=== PATIENT | male | born 1960 | race Caucasian/White ===

== ENCOUNTER 2018-05-19 17:04 | Inpatient (IN) | payer MEDICAID, OTHER ==
[~2018-05-19] VITALS: Ht 165.1 cm; Wt 70.0 kg
[2018-05-19] MEDS ORDERED: LORA2TAB2 PO (17:35)
[2018-05-19] MEDS ORDERED: ESCI10TA PO (17:35)
[2018-05-19] MEDS ORDERED: METF-960 PO (17:40)
[2018-05-19] MEDS ORDERED: FERR-89 PO (17:40)
[2018-05-19] MEDS ORDERED: AMLO-512 PO (17:40)
[2018-05-19] MEDS ORDERED: HYDR25TA PO (17:40)
[2018-05-19] MEDS ORDERED: EPIN0.3P3 IM (17:40)
[2018-05-19] MEDS ORDERED: ASPI81 PO (17:40)
[2018-05-19] MEDS ORDERED: LOSA50TA25 PO (17:40)
[2018-05-19] MEDS ORDERED: PRAV20TA4 PO (17:40)
[2018-05-19] MEDS ORDERED: METO50 PO (17:40)
[2018-05-19] MEDS ORDERED: OMEP20 PO (17:40)
[2018-05-19] MEDS ORDERED: GEMF600T5 PO (17:40)
[2018-05-19] MEDS ORDERED: LEVO112T4 PO (17:40)
[2018-05-19] MEDS ORDERED: GLYB5 PO (17:40)
[2018-05-19 18:20] LABS: BASOPHILS % (AUTO) 0.5 % (0.0-2.0); EOSINOPHILS % (AUTO) 10.5 % (1.0-6.0); HEMATOCRIT 41.4 % (41-53); HEMOGLOBIN 14.6 g/dL (13.5-17.5); LYMPHOCYTES # (AUTO) 1.7 K/uL (1.0-4.8); LYMPHOCYTES % (AUTO) 27.4 % (22.0-44.0); MEAN CORPUSCULAR HEMOGLOBIN 30.8 pg (26.0-34.0); MEAN CORPUSCULAR HGB CONC 35.3 G/dL (31.0-37.0); MEAN CORPUSCULAR VOLUME 87 fL (80-100); MONOCYTES # (AUTO) 0.6 K/uL (0.1-1.0); MONOCYTES % (AUTO) 10.5 % (2.0-9.0); NEUTROPHILS # (AUTO) 3.1 K/uL (1.8-7.7); NEUTROPHILS % (AUTO) 51.1 % (40.0-70.0); PLATELET COUNT (AUTO) 277 K/uL (150-450); RED BLOOD CELL COUNT(AUTO) 4.75 MIL/uL (4.50-5.90); RED CELL DISTRIBUTION WIDTH 13.4 % (11.5-14.5)
[2018-05-19 18:31] LABS: ANION GAP 12 mmol/L (8-16); CALCIUM, TOTAL 8.8 mg/dL (8.8-10.5); CARBON DIOXIDE 23 mmol/L (22-29); CHLORIDE 102 mmol/L (98-107); CREATININE 1.18 mg/dL (0.60-1.30); GLOMERULAR FILTR. RATE CALC > 60 mL/min (>60); GLUCOSE,RANDOM 98 mg/dL (70-110); POTASSIUM 3.1 mmol/L (3.5-5.1); SODIUM SERUM 137 mmol/L (136-145); UREA NITROGEN, BLOOD 23 mg/dL (7-18)
[2018-05-19 18:36] LABS: ALANINE AMINOTRANSFERASE 37 U/L (12-78); ALBUMIN 3.6 g/dL (3.4-5.0); ALKALINE PHOSPHATASE 86 U/L (46-116); ASPARTATE AMINOTRANSFERASE 22 U/L (15-37); BILIRUBIN,TOTAL 0.3 mg/dL (0.1-1.0); TOTAL PROTEIN, SERUM 6.6 g/dL (6.4-8.2)
[2018-05-19] MEDS ORDERED: POTASSIUM CHLORIDE 20 MEQ ER TABLET PO ONE (20:00)
[2018-05-19] MEDS ORDERED: OLANZapine 5 MG RAPDIS TABLET PO PRN (20:15)
[2018-05-20] VITALS (11 sets, daily range): BP systolic 118–138; BP diastolic 65–94
[2018-05-20] MEDS: ZOLPIDEM TARTRATE 10 MG TABLET PO PRN (00:55)
[2018-05-20 00:59] LABS: GLUCOMETER DEV NAME(LOC) BV3N5; GLUCOSE,POINT OF CARE 72 MG/DL (70-110)
[2018-05-20] MEDS ORDERED: PNEUMOCOCCAL VACCINE POLYVALENT 0.5 ML VIAL [PPSV23] IM ONE (03:15)
[2018-05-20 06:40] LABS: GLUCOMETER DEV NAME(LOC) BV3N5; GLUCOSE,POINT OF CARE 86 MG/DL (70-110)
[2018-05-20] MEDS ORDERED: PETROLATUM,WHITE 71 GM JELLY TP PRN (07:30)
[2018-05-20] MEDS ORDERED: ACETAMINOPHEN 325 MG TABLET PO PRN (07:30)
[2018-05-20] MEDS ORDERED: NICOTINE 14 MG/24 HOUR PATCH TD PRN (07:30)
[2018-05-20] MEDS ORDERED: IBUPROFEN 400 MG TABLET PO PRN (07:30)
[2018-05-20] MEDS ORDERED: MAGNESIUM HYDROXIDE SUSPENSION 30 ML UDCUP PO PRN (07:30)
[2018-05-20] MEDS ORDERED: CloNIDine HCL 0.1 MG TABLET PO PRN (07:30)
[2018-05-20] MEDS ORDERED: ALBUTEROL SULFATE HFA 90 MCG/PUFF 8 GM INHALER IH PRN (07:30)
[2018-05-20] MEDS ORDERED: GuaiFENesin/D-METHORPHAN [SUGAR-FREE] 200-20MG/10 ML SYRUP UDCUP PO PRN (07:30)
[2018-05-20] MEDS ORDERED: DOCUSATE SODIUM 100 MG CAPSULE PO PRN (07:30)
[2018-05-20] MEDS ORDERED: LOPERAMIDE HCL 2 MG CAPSULE PO PRN (07:30)
[2018-05-20] MEDS ORDERED: ONDANSETRON HCL 4 MG TABLET PO PRN (07:30)
[2018-05-20] MEDS ORDERED: MAG HYDROX/AL HYDROX/SIMETH ES 30 ML SUSPENSION UDCUP PO PRN (07:30)
[2018-05-20 08:10] LABS: BASOPHILS % (AUTO) 0.7 % (0.0-2.0); EOSINOPHILS % (AUTO) 12.2 % (1.0-6.0); HEMOGLOBIN 16.4 g/dL (13.5-17.5); LYMPHOCYTES # (AUTO) 2.6 K/uL (1.0-4.8); LYMPHOCYTES % (AUTO) 38.2 % (22.0-44.0); MEAN CORPUSCULAR HEMOGLOBIN 31.3 pg (26.0-34.0); MEAN CORPUSCULAR HGB CONC 35.6 G/dL (31.0-37.0); MEAN CORPUSCULAR VOLUME 88 fL (80-100); MONOCYTES # (AUTO) 0.7 K/uL (0.1-1.0); MONOCYTES % (AUTO) 10.6 % (2.0-9.0); NEUTROPHILS # (AUTO) 2.7 K/uL (1.8-7.7); NEUTROPHILS % (AUTO) 38.3 % (40.0-70.0); PLATELET COUNT (AUTO) 329 K/uL (150-450); RED BLOOD CELL COUNT(AUTO) 5.25 MIL/uL (4.50-5.90); RED CELL DISTRIBUTION WIDTH 13.7 % (11.5-14.5)
[2018-05-20 08:24] LABS: HEMOGLOBIN A1C 5.9 % (4.5-6.2)
[2018-05-20 08:34] LABS: ALANINE AMINOTRANSFERASE 43 U/L (12-78); ALBUMIN 4.3 g/dL (3.4-5.0); ALKALINE PHOSPHATASE 101 U/L (46-116); ANION GAP 9 mmol/L (8-16); ASPARTATE AMINOTRANSFERASE 29 U/L (15-37); BILIRUBIN,TOTAL 0.5 mg/dL (0.1-1.0); CALCIUM, TOTAL 9.7 mg/dL (8.8-10.5); CARBON DIOXIDE 28 mmol/L (22-29); CHLORIDE 101 mmol/L (98-107); CHOL/HDL RATIO 4.8 (4.2-7.3); CHOLESTEROL 222 mg/dL (131-200); GLOMERULAR FILTR. RATE CALC > 60 mL/min (>60); GLUCOSE,RANDOM 77 mg/dL (70-110); HDL CHOLESTEROL 46 mg/dL (40-60); LDL CHOL (CALC.) 132 mg/dL (0-130); SODIUM SERUM 138 mmol/L (136-145); TOTAL PROTEIN, SERUM 7.9 g/dL (6.4-8.2); TRIGLYCERIDES 218 mg/dL (15-150); UREA NITROGEN, BLOOD 20 mg/dL (7-18)
[2018-05-20] MEDS ORDERED: AmLODIPine BESYLATE 10 MG TABLET PO ONE (09:00)
[2018-05-20] MEDS: METOPROLOL TARTRATE 50 MG TABLET PO SCH ×2 (09:00→17:01)
[2018-05-20] MEDS: HYDROCHLOROTHIAZIDE 25 MG TABLET PO SCH (09:02)
[2018-05-20] MEDS: OMEPRAZOLE 20 MG CAPSULE PO SCH (09:02)
[2018-05-20] MEDS: LORazepam 2 MG TABLET PO PRN ×2 (09:03→14:42)
[2018-05-20] MEDS ORDERED: ChlordiazePOXIDE HCL 25 MG CAPSULE PO PRN (09:30)
[2018-05-20] MEDS ORDERED: GLUCAGON,HUMAN RECOMBINANT 1 MG VIAL IM PRN (09:45)
[2018-05-20] MEDS ORDERED: INSULIN LISPRO 100 UNITS/ML SQ PRN (09:45)
[2018-05-20] MEDS: CITALOPRAM HYDROBROMIDE 20 MG TABLET PO SCH (10:21)
[2018-05-20] MEDS: FERROUS SULFATE 325 MG EC TABLET PO SCH ×2 (12:02→17:01)
[2018-05-20] MEDS: PRAVASTATIN SODIUM 20 MG TABLET PO SCH (12:03)
[2018-05-20] MEDS: LOSARTAN POTASSIUM 50 MG TABLET PO SCH (12:03)
[2018-05-20] MEDS: GABAPENTIN 300 MG CAPSULE PO SCH ×2 (12:50→17:01)
[2018-05-20] MEDS: MetFORMIN HCL 850 MG TABLET PO SCH (17:01)
[2018-05-20] MEDS: GEMFIBROZIL 600 MG TABLET PO SCH (17:01)
[2018-05-20 18:29] LABS: GLUCOMETER DEV NAME(LOC) BV3N5; GLUCOSE,POINT OF CARE 71 MG/DL (70-110)
[2018-05-20] MEDS: IBUPROFEN 400 MG TABLET PO PRN (23:48)
[2018-05-21] MEDS: ZOLPIDEM TARTRATE 10 MG TABLET PO PRN (00:35)
[2018-05-21] MEDS: DENTURE ADHESIVE 68 GM CREAM DT PRN (00:36)
[2018-05-21 00:48] VITALS: BP 117/83
[2018-05-21 04:05] VITALS: BP 116/81
[2018-05-21 06:14] LABS: GLUCOMETER DEV NAME(LOC) BV3N5; GLUCOSE,POINT OF CARE 105 MG/DL (70-110)
[2018-05-21] MEDS: GEMFIBROZIL 600 MG TABLET PO SCH ×2 (06:20→16:21)
[2018-05-21] MEDS: LEVOTHYROXINE SODIUM 112 MCG TABLET PO SCH (06:20)
[2018-05-21] MEDS: GlyBURIDE 5 MG TABLET PO SCH ×2 (06:20→06:34)
[2018-05-21] MEDS: MetFORMIN HCL 850 MG TABLET PO SCH ×2 (06:31→16:20)
[2018-05-21] MEDS: FERROUS SULFATE 325 MG EC TABLET PO SCH ×3 (06:31→16:21)
[2018-05-21] MEDS ORDERED: ChlordiazePOXIDE HCL 25 MG CAPSULE PO PRN (07:00)
[2018-05-21 08:00] VITALS: BP 145/78
[2018-05-21 08:03] VITALS: BP 145/78
[2018-05-21] MEDS: GABAPENTIN 300 MG CAPSULE PO SCH ×3 (09:39→16:21)
[2018-05-21] MEDS: HYDROCHLOROTHIAZIDE 25 MG TABLET PO SCH (09:39)
[2018-05-21] MEDS: ChlordiazePOXIDE HCL 25 MG CAPSULE PO SCH ×4 (09:39→20:28)
[2018-05-21] MEDS: OMEGA-3/DHA/EPA/FISH OIL 1,000 MG CAPSULE PO SCH (09:40)
[2018-05-21] MEDS: OMEPRAZOLE 20 MG CAPSULE PO SCH (09:40)
[2018-05-21] MEDS: ASPIRIN 81 MG CHEWABLE TABLET PO SCH (09:40)
[2018-05-21] MEDS: CITALOPRAM HYDROBROMIDE 20 MG TABLET PO SCH (09:40)
[2018-05-21] MEDS: PRAVASTATIN SODIUM 20 MG TABLET PO SCH (09:41)
[2018-05-21] MEDS: LOSARTAN POTASSIUM 50 MG TABLET PO SCH (09:41)
[2018-05-21] MEDS: METOPROLOL TARTRATE 50 MG TABLET PO SCH ×2 (09:41→16:20)
[2018-05-21 12:00] VITALS: BP 137/90
[2018-05-21 16:00] VITALS: BP 140/83
[2018-05-21 16:49] LABS: GLUCOMETER DEV NAME(LOC) BV3N5; GLUCOSE,POINT OF CARE 147 MG/DL (70-110)
[2018-05-22 00:07] VITALS: BP 128/89
[2018-05-22] MEDS: ZOLPIDEM TARTRATE 10 MG TABLET PO PRN (01:15)
[2018-05-22 06:09] LABS: GLUCOMETER DEV NAME(LOC) BV3N5; GLUCOSE,POINT OF CARE 136 MG/DL (70-110)
[2018-05-22] MEDS: LEVOTHYROXINE SODIUM 112 MCG TABLET PO SCH (06:23)
[2018-05-22] MEDS: GEMFIBROZIL 600 MG TABLET PO SCH ×2 (06:23→16:58)
[2018-05-22] MEDS: ASPIRIN 81 MG CHEWABLE TABLET PO SCH (06:30)
[2018-05-22] MEDS: FERROUS SULFATE 325 MG EC TABLET PO SCH ×3 (06:30→16:58)
[2018-05-22] MEDS: MetFORMIN HCL 850 MG TABLET PO SCH ×2 (06:31→16:59)
[2018-05-22] MEDS: GlyBURIDE 5 MG TABLET PO SCH (06:31)
[2018-05-22] MEDS: DENTURE ADHESIVE 68 GM CREAM DT PRN (07:24)
[2018-05-22] MEDS: CITALOPRAM HYDROBROMIDE 20 MG TABLET PO SCH (08:32)
[2018-05-22] MEDS: HYDROCHLOROTHIAZIDE 25 MG TABLET PO SCH (08:32)
[2018-05-22] MEDS: OMEPRAZOLE 20 MG CAPSULE PO SCH (08:32)
[2018-05-22] MEDS: ChlordiazePOXIDE HCL 25 MG CAPSULE PO SCH ×4 (08:32→20:35)
[2018-05-22] MEDS: PRAVASTATIN SODIUM 20 MG TABLET PO SCH (08:33)
[2018-05-22] MEDS: LOSARTAN POTASSIUM 50 MG TABLET PO SCH (08:33)
[2018-05-22] MEDS: OMEGA-3/DHA/EPA/FISH OIL 1,000 MG CAPSULE PO SCH (08:33)
[2018-05-22] MEDS: GABAPENTIN 300 MG CAPSULE PO SCH ×3 (08:33→16:58)
[2018-05-22] MEDS: METOPROLOL TARTRATE 50 MG TABLET PO SCH ×2 (08:33→16:59)
[2018-05-22 08:39] VITALS: BP 130/71
[2018-05-22 09:00] VITALS: BP 130/71
[2018-05-22] MEDS: LORazepam 2 MG TABLET PO PRN ×2 (09:48→21:49)
[2018-05-22 16:00] VITALS: BP 121/70
[2018-05-22 17:23] LABS: GLUCOMETER DEV NAME(LOC) BV3N5; GLUCOSE,POINT OF CARE 182 MG/DL (70-110)
[2018-05-22] MEDS: IBUPROFEN 400 MG TABLET PO PRN (20:54)
[2018-05-22] MEDS ORDERED: PHENYLEPHRINE/SHK LV/MIN OIL/PET 57 GM OINTMENT TP PRN (21:15)
[2018-05-22] MEDS ORDERED: PRAV20TA4 PO (23:33)
[2018-05-22] MEDS ORDERED: OMEP20 PO (23:33)
[2018-05-22] MEDS ORDERED: GABA-531 PO (23:33)
[2018-05-22] MEDS ORDERED: METF-445 PO (23:33)
[2018-05-22] MEDS ORDERED: CITA-106 PO (23:33)
[2018-05-22] MEDS ORDERED: LOSA50TA25 PO (23:33)
[2018-05-22] MEDS ORDERED: FERR-89 PO (23:33)
[2018-05-22] MEDS ORDERED: GLYB5 PO (23:33)
[2018-05-22] MEDS ORDERED: HYDR25TA PO (23:33)
[2018-05-22] MEDS ORDERED: LIB10 PO (23:33)
[2018-05-22] MEDS ORDERED: OMEG-50 PO (23:33)
[2018-05-22] MEDS ORDERED: LEVO112T4 PO (23:33)
[2018-05-22] MEDS ORDERED: ASPI81 PO (23:33)
[2018-05-22] MEDS ORDERED: ASPI-556 PO (23:33)
[2018-05-22] MEDS ORDERED: GEMF600T5 PO (23:33)
[2018-05-23 02:35] VITALS: BP 116/68
[2018-05-23] MEDS: ACETAMINOPHEN 325 MG TABLET PO PRN (02:49)
[2018-05-23] MEDS: LORazepam 2 MG TABLET PO PRN ×2 (02:49→16:21)
[2018-05-23] MEDS: ZOLPIDEM TARTRATE 10 MG TABLET PO PRN (02:50)
[2018-05-23 05:24] VITALS: BP 128/81
[2018-05-23] MEDS: LEVOTHYROXINE SODIUM 112 MCG TABLET PO SCH (06:29)
[2018-05-23] MEDS: GEMFIBROZIL 600 MG TABLET PO SCH ×2 (06:29→16:20)
[2018-05-23] MEDS: GlyBURIDE 5 MG TABLET PO SCH (06:30)
[2018-05-23] MEDS: MetFORMIN HCL 850 MG TABLET PO SCH ×2 (06:30→16:21)
[2018-05-23] MEDS: ASPIRIN 81 MG CHEWABLE TABLET PO SCH (06:30)
[2018-05-23] MEDS: FERROUS SULFATE 325 MG EC TABLET PO SCH ×3 (06:30→16:21)
[2018-05-23 06:35] LABS: GLUCOMETER DEV NAME(LOC) BV3N5; GLUCOSE,POINT OF CARE 121 MG/DL (70-110)
[2018-05-23] MEDS ORDERED: ChlordiazePOXIDE HCL 10 MG CAPSULE PO PRN (07:00)
[2018-05-23 08:17] VITALS: BP 140/92
[2018-05-23] MEDS: PRAVASTATIN SODIUM 20 MG TABLET PO SCH (09:11)
[2018-05-23] MEDS: LOSARTAN POTASSIUM 50 MG TABLET PO SCH (09:11)
[2018-05-23] MEDS: CITALOPRAM HYDROBROMIDE 20 MG TABLET PO SCH (09:11)
[2018-05-23] MEDS: METOPROLOL TARTRATE 50 MG TABLET PO SCH ×2 (09:11→16:21)
[2018-05-23] MEDS: HYDROCHLOROTHIAZIDE 25 MG TABLET PO SCH (09:11)
[2018-05-23] MEDS: OMEGA-3/DHA/EPA/FISH OIL 1,000 MG CAPSULE PO SCH (10:50)
[2018-05-23] MEDS: GABAPENTIN 300 MG CAPSULE PO SCH ×3 (10:50→16:21)
[2018-05-23] MEDS: OMEPRAZOLE 20 MG CAPSULE PO SCH (10:50)
[2018-05-23] MEDS: ChlordiazePOXIDE HCL 10 MG CAPSULE PO SCH ×4 (10:51→20:37)
[2018-05-23 17:06] VITALS: BP 140/79
[2018-05-23 17:14] LABS: GLUCOMETER DEV NAME(LOC) BV3N5; GLUCOSE,POINT OF CARE 124 MG/DL (70-110)
[2018-05-24 02:10] VITALS: BP 128/83
[2018-05-24 02:28] VITALS: BP 128/83
[2018-05-24] MEDS: LEVOTHYROXINE SODIUM 112 MCG TABLET PO SCH (06:10)
[2018-05-24] MEDS: GEMFIBROZIL 600 MG TABLET PO SCH (06:10)
[2018-05-24 06:15] LABS: GLUCOMETER DEV NAME(LOC) BV3N5; GLUCOSE,POINT OF CARE 179 MG/DL (70-110)
[2018-05-24] MEDS: MetFORMIN HCL 850 MG TABLET PO SCH (06:34)
[2018-05-24 06:35] VITALS: BP 146/88
[2018-05-24] MEDS: LORazepam 2 MG TABLET PO PRN (06:35)
[2018-05-24] MEDS: ACETAMINOPHEN 325 MG TABLET PO PRN (06:35)
[2018-05-24] MEDS: FERROUS SULFATE 325 MG EC TABLET PO SCH (06:35)
[2018-05-24] MEDS: GlyBURIDE 5 MG TABLET PO SCH (06:35)
[2018-05-24] MEDS: ASPIRIN 81 MG CHEWABLE TABLET PO SCH (06:35)
[2018-05-24] MEDS ORDERED: ChlordiazePOXIDE HCL 10 MG CAPSULE PO PRN (07:00)
[2018-05-24] MEDS: DENTURE ADHESIVE 68 GM CREAM DT PRN (07:03)
[2018-05-24 08:05] VITALS: BP 122/87
[2018-05-24] MEDS: OMEGA-3/DHA/EPA/FISH OIL 1,000 MG CAPSULE PO SCH (09:06)
[2018-05-24] MEDS: HYDROCHLOROTHIAZIDE 25 MG TABLET PO SCH (09:06)
[2018-05-24] MEDS ORDERED: METO50 PO (09:06)
[2018-05-24] MEDS: CITALOPRAM HYDROBROMIDE 20 MG TABLET PO SCH (09:06)
[2018-05-24] MEDS: LOSARTAN POTASSIUM 50 MG TABLET PO SCH (09:06)
[2018-05-24] MEDS ORDERED: HYDR25TA PO (09:06)
[2018-05-24] MEDS: GABAPENTIN 300 MG CAPSULE PO SCH (09:06)
[2018-05-24] MEDS: PRAVASTATIN SODIUM 20 MG TABLET PO SCH (09:06)
[2018-05-24] MEDS: OMEPRAZOLE 20 MG CAPSULE PO SCH (09:06)
[2018-05-24] MEDS: METOPROLOL TARTRATE 50 MG TABLET PO SCH (09:06)
== END 2018-05-24 12:10 | disposition home or self-care (01) | DRG 754 ==
LOC: EMS 17:07 → B3A 22:30
PROVIDERS: ADMIT Psychiatry & Neurology Psychiatry; ATTEND Psychiatry & Neurology Psychiatry
PROC: 3E0234Z Introduction of Serum, Toxoid and Vaccine into Muscle, Percutaneous Approach (ICD-10-PCS; principal; 2018-05-21)
DX: F32.9 Major depressive disorder, single episode, unspecified (principal); F22 Delusional disorders; R45.851 Suicidal ideations; E03.9 Hypothyroidism, unspecified; E11.9 Type 2 diabetes mellitus without complications; E78.5 Hyperlipidemia, unspecified; E87.6 Hypokalemia; F17.200 Nicotine dependence, unspecified, uncomplicated; F43.20 Adjustment disorder, unspecified; I10 Essential (primary) hypertension; J44.9 Chronic obstructive pulmonary disease, unspecified; K21.9 Gastro-esophageal reflux disease without esophagitis; Z88.1 Allergy status to other antibiotic agents; Z88.7 Allergy status to serum and vaccine; Z91.030 Bee allergy status; Z88.6 Allergy status to analgesic agent; Z79.82 Long term (current) use of aspirin; Z79.899 Other long term (current) drug therapy; Z79.84 Long term (current) use of oral hypoglycemic drugs; Z23 Encounter for immunization; Z71.6 Tobacco abuse counseling
CPT/HCPCS: 83036; 84443; 90471; 99285; G0480

== ENCOUNTER 2018-05-22 23:10 | Emergency (ER) | payer MEDICAID, OTHER ==
[~2018-05-22] VITALS: Ht 165.1 cm; Wt 69.6 kg
[2018-05-22] MEDS ORDERED: GLYB5 PO (23:33)
[2018-05-22] MEDS ORDERED: OMEG-50 PO (23:33)
[2018-05-22] MEDS ORDERED: HYDR25TA PO (23:33)
[2018-05-22] MEDS ORDERED: PRAV20TA4 PO (23:33)
[2018-05-22] MEDS ORDERED: LIB10 PO (23:33)
[2018-05-22] MEDS ORDERED: GABA-531 PO (23:33)
[2018-05-22] MEDS ORDERED: LEVO112T4 PO (23:33)
[2018-05-22] MEDS ORDERED: FERR-89 PO (23:33)
[2018-05-22] MEDS ORDERED: CITA-106 PO (23:33)
[2018-05-22] MEDS ORDERED: OMEP20 PO (23:33)
[2018-05-22] MEDS ORDERED: METF-445 PO (23:33)
[2018-05-22] MEDS ORDERED: LOSA50TA25 PO (23:33)
[2018-05-22] MEDS ORDERED: ASPI-556 PO (23:33)
[2018-05-22] MEDS ORDERED: GEMF600T5 PO (23:33)
[2018-05-22] MEDS ORDERED: ASPI81 PO (23:33)
[2018-05-23 02:01] VITALS: BP 112/70
[2018-05-24] MEDS ORDERED: HYDR25TA PO (09:06)
[2018-05-24] MEDS ORDERED: METO50 PO (09:06)
== END 2018-05-23 02:12 | disposition home or self-care (01) ==
LOC: EMS 23:11
DX: S60.221A Contusion of right hand, initial encounter (principal); S60.412A Abrasion of right middle finger, initial encounter; S60.414A Abrasion of right ring finger, initial encounter; F32.9 Major depressive disorder, single episode, unspecified; E11.9 Type 2 diabetes mellitus without complications; K21.9 Gastro-esophageal reflux disease without esophagitis; E03.9 Hypothyroidism, unspecified; Z88.1 Allergy status to other antibiotic agents; Z91.030 Bee allergy status; Z87.891 Personal history of nicotine dependence; Z88.6 Allergy status to analgesic agent; Z79.899 Other long term (current) drug therapy; Z79.82 Long term (current) use of aspirin; Z79.84 Long term (current) use of oral hypoglycemic drugs; Y04.0XXA Assault by unarmed brawl or fight, initial encounter; Y93.89 Activity, other specified; Y92.89 Other specified places as the place of occurrence of the external cause; Y99.8 Other external cause status
CPT/HCPCS: 99284